=== PATIENT | male | born 1965 | race Caucasian/White ===

== ENCOUNTER → 2016-10-16 | Outpatient (CLI) | payer BC, OTHER ==
[~2016-10-16] MED LIST: GADAVIST IV PRN
--- NOTE | 2016-10-16 13:46 | DIAGNOSTIC IMAGING REPORT ---
MRI OF THE BRAIN WITHOUT AND WITH IV CONTRAST CLINICAL HISTORY: CLOSED HEAD INJURY W/CONCUSSION mental status change. Neuropathy. COMPARISON STUDY: No previous studies for comparison. TECHNIQUE: Utilizing a 1.5 Judith magnet and dedicated coil, multiplanar, multiecho imaging of the brain was performed pre and postcontrast administration. IV administration of 10 mL of Gadavist contrast was uneventful. FINDINGS: Diffusion-weighted images are unremarkable. Signal characteristics of the cerebellar as well as cerebral hemispheres are unremarkable. No evidence for abnormal postcontrast enhancement. Sella and parasellar regions are unremarkable. Ventricular system is midline. IMPRESSION: Normal study Electronically signed by: Wolf Moore M.D. 10/16/2016 1:45 PM Dictated Date/Time: 10/16/2016 1:39 PM
== END | disposition home or self-care (01) ==
LOC: C.OPENMRI 12:31
PROVIDERS: ATTEND Psychiatry & Neurology Neurology
DX: S06.0X9A Concussion with loss of consciousness of unspecified duration, initial encounter (principal); X58.XXXA Exposure to other specified factors, initial encounter

== ENCOUNTER → 2016-10-16 | Outpatient (CLI) | payer BC, OTHER ==
--- NOTE | 2016-10-16 21:58 | ELECTROENCEPHALOGRAPH REPORT ---
REQUESTING PHYSICIAN: Dr. Aba Johansen. 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 ELECTROENCEPHALOGRAM DIAGNOSIS: Essentially normal during wakefulness. DESCRIPTION OF TRACING: This EEG performed during full clinical wakefulness was of good technical quality. There was a simultaneous video analysis of patient movement and behavior. Photic stimulation was performed. Hyperventilation was not. Drowsiness and light sleep are not clearly recorded. During wakefulness, there was evidence for normal appearing background rhythm in the alpha range of up to 10 Hz of maximum frequency and 30 microvolts of maximum amplitude. This is maximum in posterior head regions bilaterally symmetrical. Polymorphic [id number] frequency theta activity of modest voltage is seen over all head regions without clear focal or regional predominance. Anterior head region maximum bilaterally symmetrical and low voltage fast activity in the beta range is present. Photic stimulation provokes modest driving response without a photomyogenic or photoparoxysmal component. At no time during the waking tracing is there evidence for potentially epileptogenic activity of polyspike or spike wave bursts, focal sharp waves or focal spikes. INTERPRETATION: This EEG is essentially normal during wakefulness without evidence for focal or generalized encephalopathy and without evidence for potentially epileptogenic activity. MTDD
== END | disposition home or self-care (01) ==
LOC: C.NEUR 10:20
PROVIDERS: ATTEND Psychiatry & Neurology Neurology
DX: S06.0X9D Concussion with loss of consciousness of unspecified duration, subsequent encounter (principal); X58.XXXD Exposure to other specified factors, subsequent encounter